=== PATIENT | male | born 1975 | race Caucasian/White ===

== ENCOUNTER 2023-09-28 22:07 | Emergency (ER) | payer SELFPAY ==
[~2023-09-28] VITALS: Ht 193 cm; Wt 52.3 kg
[~2023-09-28 22:07] MED LIST: BACTRIM DS 8001 TAB PO; TYLENOL W/COD1 UDTAB PO
[2023-09-28 22:08] VITALS: TEMP 97.8
[2023-09-29 00:44] VITALS: BP 132/71; PULSE 84
[2023-09-30] MEDS ORDERED: NORCO 325 MG-7.1 TAB PO (08:56)
[2023-09-30] MEDS ORDERED: DOXYCYCLINE 10100 MG PO (08:57)
== END 2023-09-29 00:44 | disposition home or self-care (01) ==
LOC: COL.ER 22:07
DX: T33.832A Superficial frostbite of left toe(s), initial encounter (principal); X31.XXXA Exposure to excessive natural cold, initial encounter

== ENCOUNTER 2023-09-29 09:37 | Inpatient (IN) | payer SELFPAY ==
[~2023-09-29] VITALS: Wt 92.5 kg
[2023-09-29 11:04] LABS: BASO % 0.5 % (0.0-2.0); EOS % 0.9 % (0.0-4.0); GRAN # 2.7 K/mm3 (1.4-6.5); GRAN % 61.6 % (42.2-75.2); HEMATOCRIT 37.6 % (42.0-52.0); HEMOGLOBIN 12.3 g/dl (13.5-18.0); LYMPH # 0.8 K/mm3 (1.2-3.4); LYMPH % 17.4 % (20.0-51.0); MEAN CELL VOLUME 91 fl (80.0-100.0); MEAN CORPUSCULAR HEMOGLOBIN 30 pg (27-31); MEAN CORPUSCULAR HGB CONC 33 g/dl (33.0-37.0); MEAN PLATELET VOLUME 9.1 fl (7.4-10.4); MONO # 0.8 K/mm3 (0.1-0.6); MONO % 19.4 % (1.7-9.3); PLATELET COUNT 267 K/mm3 (130-400); RED BLOOD COUNT 4.14 M/mm3 (4.20-5.60)
[2023-09-29 11:27] LABS: ALBUMIN 3.9 gm/dL (3.5-5.0); BILIRUBIN,TOTAL 0.9 mg/dL (0.2-1.2); CALCIUM 9.6 mg/dL (8.4-10.2); CREATININE, serum 1.21 mg/dL (0.72-1.25); POTASSIUM 4.8 mmol/L (3.5-4.5); TOTAL PROTEIN 7.8 gm/dL (6.2-8.1)
--- NOTE | 2023-09-29 12:00 | NUR ---
Patient to room 350 from the ED by wheelchair. A&Ox3, but rambling various words that dont go together. Ambulated to the shower independently. Nurse oriented the patient to location,call light and room. Shower supplies provided to the patient. No further needs expressed. Call light within reach
[2023-09-29 13:11] VITALS: BP 145/68; PULSE 88; TEMP 97.5
--- NOTE | 2023-09-29 13:59 | NUR ---
Test Baker met with patient to complete initial intake and discuss discharge planning. Patient answered questions, although sometimes the answers were difficult to understand. SW asked patient where he slept the last couple of nights. Patient stated he did not sleep last night and the night before he slept in a bar that he went to with a friend. When SW asked where patient normally stays he stated "[address]" and also [facility]. Patient stated he is covered by [facility] and is employed at [employer] but has been on a "hiatus" the last couple weeks. SW inquired about next of kin. When SW asked about his son, Teto ([id number]#[phone]) patient laughed and stated "a good, strong Tanya name". SW asked patient if he was and he was silent for a time. SW explained this was in an effort to determine next of kin. SW stated quietly, no. Patient advised he hasn't figured out where he will stay at time of discharge. SW provided [facility] Resource Guide. Discharge Plan: Unknown, patient homeless but stated he has a lot of family support
--- NOTE | 2023-09-29 14:45 | NUR ---
Patient unable to verify home medications
[2023-09-29 15:30] VITALS: BP 122/72; PULSE 92; TEMP 98.3
[2023-09-29 17:54] VITALS: BP 144/68; PULSE 88; TEMP 98
[2023-09-29 18:58] VITALS: BP 129/78; PULSE 95; TEMP 98.3
[2023-09-29 20:00] VITALS: BP_SYST 129
[2023-09-29 23:34] VITALS: BP 156/81; PULSE 80; TEMP 100.4
[2023-09-30] VITALS (8 sets, daily range): BP systolic 105–138; BP diastolic 51–86; PULSE 56–76; TEMP 97.6–98.5
[2023-09-30 06:41] LABS: HEMOGLOBIN 11.6 g/dl (13.5-18.0); MEAN CELL VOLUME 91 fl (80.0-100.0); MEAN CORPUSCULAR HEMOGLOBIN 30 pg (27-31); MEAN CORPUSCULAR HGB CONC 33 g/dl (33.0-37.0); MEAN PLATELET VOLUME 9.9 fl (7.4-10.4); PLATELET COUNT 209 K/mm3 (130-400); RED BLOOD COUNT 3.87 M/mm3 (4.20-5.60); REDCELL DISTRIBUTION WIDTH-CV 14.1 % (11.5-14.5)
[2023-09-30 06:45] LABS: HEMATOCRIT 35.2 % (42.0-52.0)
--- NOTE | 2023-09-30 06:48 | NUR ---
pt CIWA scores 16-18, after pain meds and ativan given, pt able to sleep for a few hours. when awake, pt up in room and halls, flooded room last noc trying to wash his clothing, woke up from deep sleep at 0100, walked out into ortiz and voided in cabinets and drawers outside of his room. had no awareness of where he was, until nurse talked to him. this am, pt is aware he is to have surgery, but continuously asking everyone in the halls to get him food and drinks, has been NPO since midnight. he has also gotten dressed in street clothes. nurse has reminded him several times he needs a gown on to go to surgery. Dr Beckford here to see him this am.
[2023-09-30 06:49] LABS: CALCIUM 8.5 mg/dL (8.4-10.2); CREATININE, serum 1.06 mg/dL (0.72-1.25); POTASSIUM 4.3 mmol/L (3.5-4.5)
[2023-09-30 07:00] LABS: HYPOCHROMIA 1+; LYMPHOCYTE 39 % (20.0-51.0); NEUTROPHILS 44 % (42.0-75.2); PLATELET ESTIMATE NORMAL (NORMAL)
--- NOTE | 2023-09-30 07:07 | NUR ---
Patient down to the OR
[2023-09-30] MEDS ORDERED: NORCO 325 MG-7.1 TAB PO (08:56)
[2023-09-30] MEDS ORDERED: DOXYCYCLINE 10100 MG PO (08:57)
--- NOTE | 2023-09-30 12:40 | NUR ---
Discharge paperwork reviewed with the patient. Patient wants to stay another night, but already has discharge orders. IV removed, tip intact. Gauze and coban applied. Walking boot provided, education on weight bearing status provided and follow up appointmemnt. New clothes provided. ABX and pain medication instruction reviewed with the patient. Patient transfered by wheelchair to awaiting uber to [facility]. No further needs expressed. Personal belongings with the patient
--- NOTE | 2023-09-30 13:02 | NUR ---
SW visited with patient about discharge planning. Patient reports that he does not have any options on housing at this time. SW explored "family support" that he mentioned previously to SW. Patient stated that he does not have, that we could try his mother but unsure if she can help. Patient informed SW that he needs to stay one more day, SW informed patient that at this time he is medically clear for discharge and working on supporting patient with getting arrangements set up. SW contacted [facility] on behalf of patient to see if able to access their emergency custodial services, patient is not able to return to this facility. SW was informed that he can contact a counseling case manager on Saturday of this week to explore if able to make exceptions for re-entry. SW contacted SW supervisor data processing to explore other options for patient no additional services/resources for housing avaiable, provided SW information on warming station to provide patient. SW will continue to explore options.
--- NOTE | 2023-09-30 13:21 | NUR ---
MU researched community supportive services for patient. MU provided nurse information on [facility] that patient can go to, per customer service representative teacher patient can stay there throughout day and utlize the [facility] in evening for [facility] with cold temps. Patient will be notified on this resource and set up transportation to discharge.
--- NOTE | 2023-09-30 13:45 | NUR ---
Patient taken by wheelchair to ER entrance to awaiting uber ride to [facility]. Discharge paperwork, ABX, pain medication, walking boot and additional dressing for LF foot provided. No further needs expressed.
== END 2023-09-30 13:45 | disposition home or self-care (01) | DRG 908 ==
LOC: COL.ER 09:37 → SURG 10:50
PROVIDERS: Orthopaedic Surgery; Personal Emergency Response Attendant; Physician Assistant; ADMIT Internal Medicine
PROC: 0Y6Q0Z1 Detachment at Left 1st Toe, High, Open Approach (ICD-10-PCS; principal; 2023-09-30 07:30)
DX: T34.832A Frostbite with tissue necrosis of left toe(s), initial encounter (principal); Z59.00 Homelessness unspecified; M79.675 Pain in left toe(s); Z66 Do not resuscitate; F17.210 Nicotine dependence, cigarettes, uncomplicated; D72.819 Decreased white blood cell count, unspecified; F19.10 Other psychoactive substance abuse, uncomplicated; Z91.199 Patient's noncompliance with other medical treatment and regimen due to unspecified reason; X31.XXXA Exposure to excessive natural cold, initial encounter; Y93.9 Activity, unspecified; Y92.89 Other specified places as the place of occurrence of the external cause
CPT/HCPCS: J0665; J1170; J2060; J2270; J2405; J2704; J7030

== ENCOUNTER 2023-10-01 00:31 | Emergency (ER) | payer SELFPAY ==
[~2023-10-01] VITALS: Ht 193 cm; Wt 100.0 kg
[~2023-10-01 00:31] MED LIST changes: +DOXYCYCLINE 10100 MG PO; +NORCO 325 MG-7.1 TAB PO
[2023-10-01 00:33] VITALS: BP 160/32; TEMP 98.9
[2023-10-01 00:49] VITALS: PULSE 78
== END 2023-10-01 01:00 | disposition home or self-care (01) ==
LOC: COL.ER 00:31
DX: M79.675 Pain in left toe(s) (principal); Z87.891 Personal history of nicotine dependence; Z89.412 Acquired absence of left great toe

== ENCOUNTER 2023-10-01 15:49 | Emergency (ER) | payer SELFPAY ==
[~2023-10-01] VITALS: Ht 193 cm; Wt 102.3 kg
[2023-10-01 15:52] VITALS: BP 156/96; TEMP 97.6
[2023-10-01 16:30] VITALS: PULSE 67
== END 2023-10-01 16:29 | disposition home or self-care (01) ==
LOC: COL.ER 15:49
DX: M79.672 Pain in left foot (principal); G89.29 Other chronic pain